=== PATIENT | female | born 1960 | race Caucasian/White ===

== ENCOUNTER 2018-05-11 05:40 | Inpatient (IN) | payer OTHER ==
[2018-05-11] MEDS: LACTATED RINGER'S 1,000 ML IV* (06:21)
[2018-05-11 06:53] LABS: INR 0.87; PROTIME 11.9 Sec (11.9-14.9); PT RATIO 0.9
[2018-05-11 06:54] LABS: PARTIAL THROMBOPLASTIN TIME 30.9 Sec (23.0-35.0)
[2018-05-11] MEDS ORDERED: BUPIVACAINE 0.75%/DEXT (SPINAL) 2 ML INJ (07:00)
[2018-05-11] MEDS ORDERED: CEFAZOLIN 1 GM INJ (07:00)
[2018-05-11] MEDS: BUPIVACAINE 0.5%/EPI (SDV) 30 ML INJ (07:16)
[2018-05-11] MEDS ORDERED: morphine SULFATE/PF (10 MG/10 ML) INJ (08:03)
[2018-05-11] MEDS ORDERED: MIDAZOLAM 1 MG/ML 2 ML INJ (08:09)
[2018-05-11] MEDS ORDERED: LIDOCAINE 2% (SDV) 5 ML INJ (08:16)
[2018-05-11] MEDS ORDERED: PROPOFOL 20 ML (08:16)
[2018-05-11] MEDS ORDERED: SUCCINYLCHOLINE CHLORIDE 100 MG/5 ML SYG IV (08:16)
[2018-05-11] MEDS ORDERED: PHENYLephrine (100 MCG/ML) 5ML SYG (08:16)
[2018-05-11] MEDS ORDERED: ROCURONIUM 50 MG INJ ×2 (08:16→08:41)
[2018-05-11] MEDS ORDERED: FAMOTIDINE 20 MG INJ (08:17)
[2018-05-11] MEDS ORDERED: ONDANSETRON 4 MG INJ (08:17)
[2018-05-11] MEDS ORDERED: DEXAMETHASONE 4 MG/ML 1 ML INJ (08:17)
[2018-05-11] MEDS: CEFAZOLIN 2 GM/50 ML (PMX) 50 ML IVPB (08:18)
[2018-05-11] MEDS ORDERED: SUGAMMADEX SODIUM 200 MG/2 ML VIAL IV ×2 (09:16→09:33)
[2018-05-11] MEDS ORDERED: EPHEDrine SULFATE 50 MG/5 ML SYG (09:24)
[2018-05-11] MEDS: LACTATED RINGER'S 1,000 ML IV ×2 (09:53→16:52)
[2018-05-11] MEDS ORDERED: HYDROmorphONE 0.5 MG/0.5 ML SYG IV ×2 (10:00)
[2018-05-11] MEDS ORDERED: ZOLPIDEM 5 MG TAB PO (10:00)
[2018-05-11] MEDS ORDERED: FENTAnyl 50 MCG/ML VIAL IV ×2 (10:00)
[2018-05-11] MEDS ORDERED: MEPERIDINE 25 MG INJ IV (10:00)
[2018-05-11] MEDS ORDERED: NALBUPHINE HCL (10 MG/1 ML) INJ IV (10:00)
[2018-05-11] MEDS ORDERED: ONDANSETRON 4 MG INJ IV ×3 (10:00)
[2018-05-11] MEDS ORDERED: NALOXONE (0.4 MG/ML) INJ IV (10:00)
[2018-05-11] MEDS ORDERED: PROCHLORPERAZINE 10 MG INJ IV (10:00)
[2018-05-11] MEDS ORDERED: EPHEDrine SULFATE 50 MG/5 ML SYG IV (10:00)
[2018-05-11] MEDS ORDERED: HYDROmorphONE 1 MG/5 ML IV SYRINGE IV ×2 (10:00)
[2018-05-11] MEDS ORDERED: DIPHENHYDRAMINE 50 MG INJ IV ×3 (10:00)
[2018-05-11] MEDS: HYDROmorphONE 1 MG/5 ML IV SYRINGE IV ×2 (10:01→10:20)
[2018-05-11] MEDS: FENTAnyl 50 MCG/ML VIAL IV ×2 (10:01→10:20)
[2018-05-11] MEDS: KETOROLAC 30 MG INJ IV (14:48)
[2018-05-12] MEDS: LACTATED RINGER'S 1,000 ML IV ×3 (01:56→15:53)
[2018-05-12] MEDS: LACTATED RINGER'S 1,000 ML IV* (05:49)
[2018-05-12 06:18] LABS: ADD MAN DIFF? NO
[2018-05-12 06:23] LABS: WHITE BLOOD COUNT 11.6 10^3/ul (4.8-10.8)
[2018-05-12 06:23] LABS: BASOPHILS % 0.2 % (0.0-2.0); EOSINOPHILS % 0.3 % (0.0-7.0); HEMATOCRIT 34.5 % (37.0-47.0); HEMOGLOBIN 11.2 g/dl (12.0-16.0); LYMPHOCYTES % 17.6 % (15.0-51.0); MEAN CORPUSCULAR HEMOGLOBIN 27.5 pg (29.0-33.0); MEAN CORPUSCULAR HGB CONC 32.5 g/dl (32.0-37.0); MEAN CORPUSCULAR VOLUME 84.6 fl (82.0-101.0); MEAN PLATELET VOLUME 10.1 fl (7.4-10.4); MONOCYTE # 0.7 10^3/ul (0.3-0.9); MONOCYTES % 6.2 % (0.0-11.0); NEUTROPHIL # 8.8 10^3/ul (1.6-7.5); NEUTROPHILS % 75.4 % (39.0-77.0); PLATELET COUNT 178 10^3/UL (140-415); RED BLOOD COUNT 4.08 10^6/ul (4.20-5.40)
[2018-05-12] MEDS ORDERED: OXYCODONE/ACETAMINOPHEN (5/325) TAB PO (08:00)
[2018-05-12] MEDS: KETOROLAC 30 MG INJ IV ×2 (08:06→15:34)
[2018-05-12] MEDS: MAGNESIUM HYDROXIDE 30ML CUP PO (20:47)
[2018-05-13] MEDS: KETOROLAC 30 MG INJ IV (05:05)
== END 2018-05-13 08:45 | disposition home or self-care (01) | DRG 743 ==
LOC: SDS 05:40 → MS1 11:59 → SDS 09:59 → MS1 09:59
PROC: 0UT00ZZ Resection of Right Ovary, Open Approach (ICD-10-PCS; principal; 2018-05-11 07:30)
PROC: 0UT50ZZ Resection of Right Fallopian Tube, Open Approach (ICD-10-PCS; 2018-05-11 07:30)
DX: N83.201 Unspecified ovarian cyst, right side (principal)
CPT/HCPCS: 85025; 85610; 85730; 86850; 86900; 86901; 87086; 88305; 93005